=== PATIENT | female | born 1940 | race Caucasian/White ===

== ENCOUNTER 2021-04-30 12:10 | Outpatient (CLI) | payer MEDICARE, OTHER | END 2021-04-30 12:11 | disposition home or self-care (01) | LOC: NAV RAD 12:10 | PROVIDERS: ATTEND Nurse Practitioner Family | DX: R09.89 Other specified symptoms and signs involving the circulatory and respiratory systems (principal); I51.7 Cardiomegaly; R91.8 Other nonspecific abnormal finding of lung field | CPT/HCPCS: 71046 ==

== ENCOUNTER 2021-08-28 12:31 | Outpatient (CLI) | payer MEDICARE, OTHER | END 2021-08-28 12:32 | disposition home or self-care (01) | LOC: NAV RAD 12:31 | PROVIDERS: ATTEND Family Medicine | DX: R05.9 Cough, unspecified (principal); R09.89 Other specified symptoms and signs involving the circulatory and respiratory systems | CPT/HCPCS: 71046 ==